=== PATIENT | female | born 1975 | race Hispanic/Latino ===

== ENCOUNTER → 2018-06-24 | Day surgery (SDC) | payer BC ==
[~2018-06-24] MED LIST: HYOSCYAMINE SULFATE 0.5 MG/ML INJ ONE; KETAMINE HCL INJ 50 MG/ML 10 ML VIAL ONE; LIDOCAINE HCL 2% LOCAL INJ 5 ML SDV VIAL INJ ONE; MIDAZOLAM HCL 2 MG/2 ML VIAL ONE; OMEPRAZOLE40 MG PO; PROPOFOL IV EMULSION 10 MG/ML 50 ML VIAL ONE
--- OUTSIDE RECORDS SUMMARY | 2018-06-24 06:47 | XMS REPORT | Continuity of Care Document ---
Author Author [facility] Interface Address Unknown Phone Unavailable Problems Problem Status Onset Date Classification Date Reported Comments Source Urinary tract infection without hematuria, site unspecified Active Diagnosis 05/29/2018 [facility] Upper respiratory tract infection, unspecified type Active Diagnosis 10/08/2016 [facility] Sinus pressure Active Diagnosis 11/20/2016 [facility] Sore throat Active Diagnosis 11/15/2017 [facility] Acute non-recurrent maxillary sinusitis Active Diagnosis 11/15/2017 [facility] Frequency of urination Active Diagnosis 11/15/2017 [facility] Strep pharyngitis Active Diagnosis 11/15/2017 [facility] Flu-like symptoms Active Diagnosis 01/13/2017 [facility] Obesity, Class II, BMI 35-39.9 Active Problem 11/15/2015 [facility] Migraine headache with aura Active Problem 06/03/2016 [facility] Body Mass Index 37.0-37.9, adult Active Problem 11/15/2015 [facility] Screening for breast cancer Active Diagnosis 05/29/2018 [facility] Low back pain Active Diagnosis 10/17/2015 [facility] UTI Active Diagnosis 10/26/2015 [facility] BMI 38.0-38.9,adult Active Diagnosis 11/09/2015 [facility] Urinary tract infection Active Diagnosis 11/09/2015 [facility] Lower abdominal pain Active Diagnosis 11/09/2015 [facility] Weight gain Active Diagnosis 11/09/2015 [facility] Dysuria Active Diagnosis 05/28/2016 [facility] Acute left-sided low back pain without sciatica Active Diagnosis 05/01/2016 [facility] Frequent urination Active Diagnosis 05/01/2016 [facility] Acute cystitis with hematuria Active Diagnosis 05/01/2016 [facility] Gastroesophageal reflux disease, esophagitis presence not specified Active Problem 05/29/2018 [facility] UTI symptoms Active Diagnosis 05/25/2018 [facility] Encntr for general adult medical exam w/o abnormal findings Active Diagnosis 05/29/2018 [facility] Screening for colon cancer Active Diagnosis 05/29/2018 [facility] Screening for osteoporosis Active Diagnosis 05/29/2018 [facility] Medications Medication Details Route Status Patient Instructions Ordering Provider Order Date Source Ciprofloxacin HCl 1 tablet Orally Active 500 mg Orally every 12 hrs [facility] 05/18/2018 [facility] Amoxicillin 1 tablet Orally Active 500 mg Orally every 12 hrs [facility] 05/18/2018 [facility] Omeprazole 1 capsule Orally Active 10 mg Orally Once a day [facility] 05/18/2018 [facility] Cipro 1 tablet Orally Active 500 mg Orally every 12 hrs [facility] 05/11/2018 [facility] Cipro 1 tablet Orally Active 500 mg Orally every 12 hrs [facility] 11/17/2017 [facility] Augmentin 1 tablet Orally Active 875-125 MG Orally every 12 hrs [place] 11/03/2017 [facility] Medrol as directed & to be started sat am as discussed w/ pt Orally Active 4 mg Orally as directed [place] 11/03/2017 [facility] Tamiflu 1 capsule Orally Active 75 mg Orally Twice a day [facility] 01/11/2017 [facility] Bromfed DM 10 ml as needed Orally Active 30-2-10 MG/5ML Orally every 4-6 hrs PRN [place] 01/11/2017 [facility] Macrobid 1 capsule with food Orally Active 100 MG Orally twice a day (bid) [facility] 06/02/2016 [facility] Cipro 1 tablet Orally Active 250 MG Orally every 12 hrs [facility] 05/25/2016 [facility] Cipro 1 tablet Orally Active 500 MG Orally Twice a day [place] 04/28/2016 [facility] Contrave 1 tab QAM for 1 week, then increase 1 tab BID for 1 week, then increase 2 tab QAM and 1 tab QPM for 1 week, then increase 2 Tab QAM and 2 tab QPM by mouth Active 8mg/90mg by mouth [place] 11/07/2015 [facility] Bactrim DS 1 tablet Orally Active 800-160 MG Orally Twice a day [place] 11/07/2015 [facility] Contrave 1 tab QAM for 1 week, then increase 1 tab BID for 1 week, then increase 2 tab QAM and 1 tab QPM for 1 week, then increase 2 Tab QAM and 2 tab QPM by mouth Active 8mg/90mg by mouth [place] 11/07/2015 [facility] Macrobid 1 capsule with food Orally Active 100 mg Orally every 12 hrs [facility] 10/16/2015 [facility] Naproxen 1 tablet Orally Active 375 MG Orally Twice a day [place] 10/14/2015 [facility] Cyclobenzaprine HCl 1 tablet Orally Active 10 mg Orally at hour of sleep [place] 10/14/2015 [facility] Advil Allergy Sinus not defined NA Active [facility] Vitamin D (Ergocalciferol) 1 capsule Orally Active [address] UNIT Orally once per week [facility] Allergies, Adverse Reactions, Alerts Substance Category Reaction Severity Reaction type Status Date Reported Comments Source N.K.D.A. Adverse Reaction Info Not Available Adverse Reaction Active 05/18/2018 [facility] Immunizations Immunization Date Given Site Status Last Updated Comments Source Results Order Name Results Value Reference Range Date Interpretation Comments Source Vital Signs Vital Sign Value Date Comments Source Weight 209 05/18/2018 [facility] Height 62 05/18/2018 [facility] Heart Rate 93 05/18/2018 [facility] Diastolic (mm Hg) 86 05/18/2018 [facility] Systolic (mm Hg) 130 05/18/2018 [facility] Weight 210 05/11/2018 [facility] Height 62 05/11/2018 [facility] Heart Rate 97 05/11/2018 [facility] Diastolic (mm Hg) 72 05/11/2018 [facility] Systolic (mm Hg) 130 05/11/2018 [facility] Weight 217 11/03/2017 [facility] Height 62 11/03/2017 [facility] Heart Rate 112 11/03/2017 [facility] Diastolic (mm Hg) 84 11/03/2017 [facility] Systolic (mm Hg) 130 11/03/2017 [facility] Weight 219 01/11/2017 [facility] Height 62 01/11/2017 [facility] Temperature Oral (F) 98.5 F 01/11/2017 [facility] Heart Rate 129 01/11/2017 [facility] Diastolic (mm Hg) 70 01/11/2017 [facility] Systolic (mm Hg) 130 01/11/2017 [facility] Weight 220 11/18/2016 [facility] Height 62 11/18/2016 [facility] Temperature Oral (F) 98.3 F 11/18/2016 [facility] Heart Rate 79 11/18/2016 [facility] Diastolic (mm Hg) 70 11/18/2016 [facility] Systolic (mm Hg) 120 11/18/2016 [facility] Weight 216 10/07/2016 [facility] Height 62 10/07/2016 [facility] Temperature Oral (F) 98.0 F 10/07/2016 [facility] Heart Rate 80 10/07/2016 [facility] Diastolic (mm Hg) 70 10/07/2016 [facility] Systolic (mm Hg) 126 10/07/2016 [facility] Weight 214 05/25/2016 [facility] Height 62 05/25/2016 [facility] Heart Rate 95 05/25/2016 [facility] Diastolic (mm Hg) 70 05/25/2016 [facility] Systolic (mm Hg) 112 05/25/2016 [facility] Weight 214 04/28/2016 [facility] Height 62 04/28/2016 [facility] Heart Rate 95 04/28/2016 [facility] Diastolic (mm Hg) 82 04/28/2016 [facility] Systolic (mm Hg) 119 04/28/2016 [facility] Weight 211 11/07/2015 [facility] Height 62 11/07/2015 [facility] Heart Rate 78 11/07/2015 [facility] Diastolic (mm Hg) 70 11/07/2015 [facility] Systolic (mm Hg) 122 11/07/2015 [facility] Weight 210 10/23/2015 [facility] Height 62 10/23/2015 [facility] Heart Rate 95 10/23/2015 [facility] Diastolic (mm Hg) 75 10/23/2015 [facility] Systolic (mm Hg) 120 10/23/2015 [facility] Weight 209 10/14/2015 [facility] Height 62 10/14/2015 [facility] Heart Rate 104 10/14/2015 [facility] Diastolic (mm Hg) 76 10/14/2015 [facility] Systolic (mm Hg) 119 10/14/2015 [facility] Encounters Location Location Details Encounter Type Encounter Number Reason For Visit Attending Provider ADM Date DC Date Status Source [facility] back pain [id number] 10/14/2015 10/14/2015 [facility] back pain [id number] 10/14/2015 10/14/2015 [facility] back pain [id number] 10/14/2015 10/14/2015 [facility] back pain [id number] 10/14/2015 10/14/2015 [facility] back pain [id number] 10/14/2015 10/14/2015 [facility] Unknown [id number] 10/16/2015 10/16/2015 [facility] Unknown [id number] 10/16/2015 10/16/2015 [facility] Unknown [id number] 10/16/2015 10/16/2015 [facility] Unknown [id number] 10/16/2015 10/16/2015 [facility] Unknown [id number] 10/16/2015 10/16/2015 [facility] 1 week follow up [id number] 10/23/2015 10/23/2015 [facility] 1 week follow up [id number] 10/23/2015 10/23/2015 [facility] 1 week follow up [id number] 10/23/2015 10/23/2015 [facility] Sick visit [id number] 11/07/2015 11/07/2015 [facility] Sick visit [id number] 11/07/2015 11/07/2015 [facility] Refill [id number] 11/14/2015 11/14/2015 [facility] Procedures Procedure Code Date Perfomer Comments Source
--- OUTSIDE RECORDS SUMMARY | 2018-06-24 06:47 | XMS REPORT ---
Author Author Anneliese Boss Organization [employer] Address Unknown Phone Unavailable Care Team Providers Care Tree Chipper Name Role Phone Anneliese Boss Unavailable Allergies No Known Allergies Problems Problem Type Condition Code Onset Dates Condition Status Problem Gastroesophageal reflux disease, esophagitis presence not specified K21.9 Active Medications Medication Code System Code Instructions Start Date End Date Status Dosage Ciprofloxacin HCl [facility] 65696631247 500 mg Orally every 12 hrs May 18, 2018 May 28, 2018 Active 1 tablet Results No Known Results Summary Purpose [employer] Submission
--- OUTSIDE RECORDS SUMMARY | 2018-06-24 06:47 | XMS REPORT ---
Author Author Desi Lawrence Organization [employer] Address Unknown Phone Unavailable Care Team Providers Care Merchandising Execution Manager Name Role Phone Desi Lawrence CP Unavailable Allergies, Adverse Reactions, Alerts Substance Reaction Event Type N.K.D.A. Info Not Available Non Drug Allergy Problems Problem Type Condition Code Onset Dates Condition Status Assessment Flu-like symptoms R68.89 Active Medications Medication Code System Code Instructions Start Date End Date Status Dosage Tamiflu [facility] 93133160555 75 mg Orally Twice a day Jan 11, 2017 Active 1 capsule Advil Allergy Sinus [facility] [address]-74 Active not defined Bromfed DM [facility] 99245277694 30-2-10 MG/5ML Orally every 4-6 hrs PRN Jan 11, 2017 Jan 18, 2017 Active 10 ml as needed Vital Signs Date/Time: Jan 11, 2017 BMI 40.05 Index Weight 219 lbs Height 62 in Temperature 98.5 F Cardiac Monitoring Heart Rate 129 /min Blood Pressure Diastolic 70 mm Hg Blood Pressure Systolic 130 mm Hg Results Name Result Date Reference Range Unit Abnormality Flag RAPID FLU ----Result POSITIVE A [id number] Summary Purpose [employer] Submission
--- OUTSIDE RECORDS SUMMARY | 2018-06-24 06:47 | XMS REPORT ---
Author Author Abraham Avila [employer] Address Unknown Phone Unavailable Care Team Providers Care Disc Pad Grinder Name Role Phone Abraham Avila Unavailable Allergies, Adverse Reactions, Alerts Substance Reaction Event Type N.K.D.A. Info Not Available Non Drug Allergy Problems Problem Type Condition Code Onset Dates Condition Status Assessment Sore throat J02.9 Active Assessment Acute non-recurrent maxillary sinusitis J01.00 Active Assessment Frequency of urination R35.0 Active Assessment Urinary tract infection without hematuria, site unspecified N39.0 Active Assessment Strep pharyngitis J02.0 Active Medications Medication Code System Code Instructions Start Date End Date Status Dosage Augmentin [facility] 80013925830 875-125 MG Orally every 12 hrs Nov 03, 2017 Nov 13, 2017 Active 1 tablet Medrol [facility] 92814135890 4 mg Orally as directed Nov 03, 2017 Nov 09, 2017 Active as directed & to be started sat am as discussed w/ pt Advil Allergy Sinus [facility] [address]-66 Active not defined Tamiflu [facility] 21560164372 75 mg Orally Twice a day Jan 11, 2017 Active 1 capsule Vital Signs Date/Time: Nov 03, 2017 BMI 39.69 Index Weight 217 lbs Height 62 in Cardiac Monitoring Heart Rate 112 /min Blood Pressure Diastolic 84 mm Hg Blood Pressure Systolic 130 mm Hg Results Name Result Date Reference Range Unit Abnormality Flag [place]AD[place] 1MGx4 CULTURE, URINE, ROUTINE ----CULTURE, URINE, ROUTINE SEE NOTE [id number] A URINE AUTO W/O SCOPE ----Spec [place] 1.020 20171103 ----Turbidity CLOUDY 20171103 ----Glucose NEG 20171103 ----Ketones SMALL 20171103 ----Blood LARGE 20171103 ----Bili NEG 20171103 ----Color DARK YELLOW 20171103 ----pH 5.0 20171103 ----Leuk Est SMALL 20171103 ----Nitrite NEG 20171103 ----Urobilinogen 0.2 20171103 ----Protein 100 20171103 RAPID STREP ----Positive x [id number] Summary Purpose [employer] Submission
--- OUTSIDE RECORDS SUMMARY | 2018-06-24 06:47 | XMS REPORT ---
Author Author Anneliese Boss Organization [employer] Address Unknown Phone Unavailable Care Team Providers Care Accounting Machine Operator Name Role Phone Anneliese Boss CP Unavailable Allergies, Adverse Reactions, Alerts Substance Reaction Event Type N.K.D.A. Info Not Available Non Drug Allergy Problems Problem Type Condition Code Onset Dates Condition Status Assessment UTI symptoms R39.9 Active Problem Gastroesophageal reflux disease, esophagitis presence not specified K21.9 Active Medications Medication Code System Code Instructions Start Date End Date Status Dosage Cipro ND 57189439953 500 mg Orally every 12 hrs May 11, 2018 May 21, 2018 Active 1 tablet Vital Signs Date/Time: May 11, 2018 BMI 38.41 Index Weight 210 lbs Height 62 in Cardiac Monitoring Heart Rate 97 /min Blood Pressure Diastolic 72 mm Hg Blood Pressure Systolic 130 mm Hg Results Name Result Date Reference Range Unit Abnormality Flag URINE AUTO W/O SCOPE ----Spec [place] 1.010 [id number] ----Turbidity CLEAR 20180512 ----Glucose NEG 20180512 ----Ketones NEG 20180512 ----Blood LARGE+++ 20180512 ----Bili NEG 20180512 ----Color YELLOW 20180512 ----pH 7.0 20180512 ----Leuk Est SMALL+ 20180512 ----Nitrite NEG 20180512 ----Urobilinogen 0.2 20180512 ----Protein NEG 20180512 CULTURE, URINE, ROUTINE ----CULTURE, URINE, ROUTINE SEE NOTE [id number] A Summary Purpose [employer] Submission
--- OUTSIDE RECORDS SUMMARY | 2018-06-24 06:47 | XMS REPORT ---
Author Author Desi Lawrence Organization [employer] Address Unknown Phone Unavailable Care Team Providers Care Catalyst Operator Gasoline Name Role Phone Desi Lawrence CP Unavailable Allergies, Adverse Reactions, Alerts Substance Reaction Event Type N.K.D.A. Info Not Available Non Drug Allergy Problems Problem Type Condition Code Onset Dates Condition Status Assessment Upper respiratory tract infection, unspecified type J06.9 Active Medications Medication Code System Code Instructions Start Date End Date Status Dosage Advil Allergy Sinus [facility] [address]-93 Active not defined Vital Signs Date/Time: Oct 07, 2016 BMI 39.50 Index Weight 216 lbs Height 62 in Temperature 98.0 F Cardiac Monitoring Heart Rate 80 /min Blood Pressure Diastolic 70 mm Hg Blood Pressure Systolic 126 mm Hg Results No Known Results Summary Purpose [employer] Submission
--- OUTSIDE RECORDS SUMMARY | 2018-06-24 06:47 | XMS REPORT ---
Author Author Anneliese Boss [facility] [employer] Address Unknown Phone Unavailable Care Team Providers Care Cad Designer Drafter Name Role Phone Anneliese Boss CP Unavailable Allergies, Adverse Reactions, Alerts Substance Reaction Event Type N.K.D.A. Info Not Available Non Drug Allergy Problems Problem Type Condition Code Onset Dates Condition Status Assessment Urinary tract infection without hematuria, site unspecified N39.0 Active Assessment Encntr for general adult medical exam w/o abnormal findings Z00.00 Active Problem Gastroesophageal reflux disease, esophagitis presence not specified K21.9 Active Assessment Screening for colon cancer Z12.11 Active Assessment Gastroesophageal reflux disease, esophagitis presence not specified K21.9 Active Assessment Screening for breast cancer Z12.39 Active Assessment Screening for osteoporosis Z13.820 Active Medications Medication Code System Code Instructions Start Date End Date Status Dosage Amoxicillin [facility] 99117512253 500 mg Orally every 12 hrs May 18, 2018 May 28, 2018 Active 1 tablet Omeprazole [facility] 66124964914 10 mg Orally Once a day May 18, 2018 Active 1 capsule Cipro [facility] 75998178511 500 mg Orally every 12 hrs May 11, 2018 May 21, 2018 Active 1 tablet Vital Signs Date/Time: May 18, 2018 BMI 38.22 Index Weight 209 lbs Height 62 in Cardiac Monitoring Heart Rate 93 /min Blood Pressure Diastolic 86 mm Hg Blood Pressure Systolic 130 mm Hg Results Name Result Date Reference Range Unit Abnormality Flag TSH+Free T4 ----TSH 1.780 [id number] 0.450-4.500 uIU/mL ----T4,Free(Direct) 1.27 15816413 0.82-1.77 ng/dL Lipid Panel ----LDL Cholesterol Calc 80 12542148 0-99 mg/dL ----VLDL Cholesterol Brad 23 84627437 5-40 mg/dL ----Cholesterol, Total 172 03882063 100-199 mg/dL ----HDL Cholesterol 69 23602794 >39 mg/dL ----Triglycerides 117 05165485 0-149 mg/dL Urinalysis, Routine ----RBC 11-30 64458023 0 - 2 /hpf A ----WBC 0-5 62901254 0 - 5 /hpf ----Mucus Threads Present [id number] Not Estab. ----Epithelial Cells (non renal) 0-10 44200311 0 - 10 /hpf ----Occult Blood 2+ 29926632 Negative A ----Ketones Negative 85021257 Negative ----Bacteria Few 07257508 None seen/Few ----Glucose Negative 98987858 Negative ----Protein 1+ 45259425 Negative/Trace A ----WBC Esterase Negative 67225408 Negative ----Urobilinogen,Semi-Qn 0.2 90826993 0.2-1.0 mg/dL ----Bilirubin Negative 00410070 Negative ----Microscopic Examination See below: [id number] ----Nitrite, Urine Negative 75582177 Negative ----Specific [place] 1.022 20180518 1.005-1.030 ----pH 6.5 99273610 5.0-7.5 ----Urine-Color Yellow 20180518 Yellow ----Appearance Clear [id number] Clear CBC With Differential/Platelet ----MCHC 33.6 05583402 31.5-35.7 g/dL ----MCH 28.6 63964308 26.6-33.0 pg ----Platelets 258 98989398 150-379 x10E3/uL ----RDW 14.4 41707105 12.3-15.4 % ----Immature Granulocytes 0 11002886 Not Estab. % ----Immature Grans (Abs) 0.0 79123553 0.0-0.1 x10E3/uL ----Lymphs 29 26726943 Not Estab. % ----Monocytes 6 74601506 Not Estab. % ----Neutrophils 59 62873145 Not Estab. % ----Neutrophils (Absolute) 3.3 65581188 1.4-7.0 x10E3/uL ----Hematocrit 42.3 14459288 34.0-46.6 % ----Lymphs (Absolute) 1.6 66236865 0.7-3.1 x10E3/uL ----MCV 85 80530874 79-97 fL ----Eos 6 06584265 Not Estab. % ----RBC 4.97 60333178 3.77-5.28 x10E6/uL ----Basos 0 56212928 Not Estab. % ----Hemoglobin 14.2 41979305 11.1-15.9 g/dL ----Baso (Absolute) 0.0 61304498 0.0-0.2 x10E3/uL ----WBC 5.5 49276710 3.4-10.8 x10E3/uL ----Monocytes(Absolute) 0.3 46255229 0.1-0.9 x10E3/uL ----Eos (Absolute) 0.3 95717537 0.0-0.4 x10E3/uL Comp. Metabolic Panel (14) ----Potassium 4.5 38112632 3.5-5.2 mmol/L ----Sodium 139 40967104 134-144 mmol/L ----BUN/Creatinine Ratio 14 20180518 9-23 ----eGFR If Africn Am 103 09727076 >59 mL/min/1.73 ----eGFR If NonAfricn Am 89 45967891 >59 mL/min/1.73 ----Creatinine 0.81 19735711 0.57-1.00 mg/dL ----BUN 11 22011575 6-24 mg/dL ----Glucose 88 33556031 65-99 mg/dL ----AST (SGOT) 13 20180518 0-40 IU/L ----Globulin, Total 2.5 03241860 1.5-4.5 g/dL ----ALT (SGPT) 16 20180518 0-32 IU/L ----A/G Ratio 1.8 20180518 1.2-2.2 ----Bilirubin, Total 0.4 55729318 0.0-1.2 mg/dL ----Alkaline Phosphatase 78 06155923 39-117 IU/L ----Carbon Dioxide, Total 20 20180518 20-29 mmol/L ----Calcium 9.8 16027285 8.7-10.2 mg/dL ----Protein, Total 7.0 20180518 6.0-8.5 g/dL ----Albumin 4.5 20180518 3.5-5.5 g/dL ----Chloride 101 20180518 96-106 mmol/L Summary Purpose [employer]Works Submission
--- OUTSIDE RECORDS SUMMARY | 2018-06-24 06:47 | XMS REPORT ---
Author Author Abraham Avila Organization [employer] Address Unknown Phone Unavailable Care Team Providers Care Air Tank Assembler Name Role Phone Abraham Avila Unavailable Allergies No Known Allergies Problems Problem Type Condition Code Onset Dates Condition Status Assessment Urinary tract infection without hematuria, site unspecified N39.0 Active Medications Medication Code System Code Instructions Start Date End Date Status Dosage Cipro [facility] 91948408568 500 mg Orally every 12 hrs Nov 17, 2017 Nov 27, 2017 Active 1 tablet Results No Known Results Summary Purpose eClinicalWorks Submission
--- OUTSIDE RECORDS SUMMARY | 2018-06-24 06:47 | XMS REPORT ---
Author Author Desi Lawrence Organization [employer] Address Unknown Phone Unavailable Care Team Providers Care Environmental Educator Name Role Phone Desi Lawrence CP Unavailable Allergies, Adverse Reactions, Alerts Substance Reaction Event Type N.K.D.A. Info Not Available Non Drug Allergy Problems Problem Type Condition Code Onset Dates Condition Status Assessment Sinus pressure J34.89 Active Medications Medication Code System Code Instructions Start Date End Date Status Dosage Advil Allergy Sinus [facility] [address]-09 Active not defined Vital Signs Date/Time: Nov 18, 2016 BMI 40.23 Index Weight 220 lbs Height 62 in Temperature 98.3 F Cardiac Monitoring Heart Rate 79 /min Blood Pressure Diastolic 70 mm Hg Blood Pressure Systolic 120 mm Hg Results No Known Results Summary Purpose eClinicalWorks Submission
--- OUTSIDE RECORDS SUMMARY | 2018-06-24 06:48 | XMS REPORT ---
Author Author Keren Carpenter Organization [employer] Address Unknown Phone Unavailable Care Team Providers Care Sidehand Name Role Phone Keren Carpenter Unavailable Allergies, Adverse Reactions, Alerts Substance Reaction Event Type N.K.D.A. Info Not Available Non Drug Allergy Encounters Encounter Location Date back pain [facility] Oct 14, 2015 Unknown [facility] Oct 16, 2015 Problems Problem Type Condition ICD-9 Code Onset Dates Condition Status Problem Obesity, Class II, BMI 35-39.9 278.00 Active Problem Migraine headache with aura 346.00 Active Problem Body Mass Index 37.0-37.9, adult V85.37 Active Assessment Screening for breast cancer Z12.39 Active Assessment Low back pain M54.5 Active Medications Medication Code System Code Instructions Start Date End Date Status Dosage Naproxen [facility] [address]-33 375 MG Orally Twice a day Oct 14, 2015 Nov 13, 2015 Active 1 tablet [facility] [address]-35 10 mg Orally at hour of sleep Oct 14, 2015 Nov 13, 2015 Active 1 tablet Social History Social History Element Qualifiers Date Reported Depression Screening: . negative Oct 14, 2015 Last Colonoscopy: . never Oct 14, 2015 Last Bone Density: . never Oct 14, 2015 children . 5 Oct 14, 2015 Tobacco Use: . Are you a: never smoker Oct 14, 2015 Flu Vaccine: . 2013Oct 14, 2015 Do you have pets? . Status: No Oct 14, 2015 Marital Status: . Gordo Ashvin Oct 14, 2015 Caffeine intake? . Status: Yes, What type: Coffee Oct 14, 2015 Do you exercise? . Answer: No Oct 14, 2015 Do you drink alcohol? . 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
--- OUTSIDE RECORDS SUMMARY | 2018-06-24 06:48 | XMS REPORT ---
Author Author Keren Carpenter [facility] eClinicalWorks Address Unknown Phone Unavailable Care Team Providers Care Clinical Cytogeneticist Scientist Name Role Phone Keren Carpenter CP Unavailable Allergies, Adverse Reactions, Alerts Substance Reaction Event Type N.K.D.A. Info Not Available Non Drug Allergy Encounters Encounter Location Date back pain [facility] Oct 14, 2015 Unknown [facility] Oct 16, 2015 1 week follow up [facility] Oct 23, 2015 Problems Problem Type Condition ICD-9 Code Onset Dates Condition Status Problem Obesity, Class II, BMI 35-39.9 278.00 Active Problem Migraine headache with aura 346.00 Active Problem Body Mass Index 37.0-37.9, adult V85.37 Active Assessment UTI (urinary tract infection) N39.0 Active Medications Medication Code System Code Instructions Start Date End Date Status Dosage Macrobid [facility] [address]-35 100 mg Orally every 12 hrs Oct 16, 2015 Oct 23, 2015 Active 1 capsule with food Cyclobenzaprine HCl [facility] [address]-81 10 mg Orally at hour of sleep Oct 14, 2015 Nov 13, 2015 Active 1 tablet Naproxen [facility] [address]-92 375 MG Orally Twice a day Oct 14, 2015 Nov 13, 2015 Active 1 tablet Social History Social History Element Qualifiers Date Reported Depression Screening: . negative Oct 23, 2015 Last Colonoscopy: . never Oct 23, 2015 Last Bone Density: . never Oct 23, 2015 children . 5 Oct 23, 2015 Tobacco Use: . Are you a: never smoker Oct 23, 2015 Flu Vaccine: . 2013Oct 23, 2015 Do you have pets? . Status: No Oct 23, 2015 Marital Status: . Gordo Lock Oct 23, 2015 Caffeine intake? . Status: Yes, What type: Coffee Oct 23, 2015 Do you exercise? . Answer: No Oct 23, 2015 Do you drink alcohol? . 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, 2015 Family history Qualifier Description Comment Date Reported Maternal Grandmother stroke Oct 23, 2015 Paternal Grandmother Comment not available Oct 23, 2015 Siblings Comment not available Oct 23, 2015 Maternal Grandfather Comment not available Oct 23, 2015 Children Comment not available Oct 23, 2015 Father alive heart disease, heart attack Oct 23, 2015 Paternal Grandfather Comment not available Oct 23, 2015 Mother alive hypertension, seizure disorder, asthma Oct 23, 2015 Other: Comment not available Oct 23, 2015 Vital Signs Date/Time: Oct 23, 2015 Weight 210 lbs Height 62 in Cardiac Monitoring Heart Rate 95 /min Blood Pressure Diastolic 75 mm Hg Blood Pressure Systolic 120 mm Hg Results URINE AUTO W/O SCOPE Summary Purpose eClinicalWorks Submission
--- OUTSIDE RECORDS SUMMARY | 2018-06-24 06:48 | XMS REPORT ---
Author Author Allie Watson Organization e[employer] Address Unknown Phone Unavailable Care Team Providers Care Cross [place] Truck Driver Name Role Phone Allie Watson CP Unavailable Allergies No Known Allergies Problems Problem Type Condition Code Onset Dates Condition Status Problem Migraine headache with aura 346.00 Active Medications Medication Code System Code Instructions Start Date End Date Status Dosage Macrobid [facility] [address]-98 100 MG Orally twice a day (bid) June 02, 2016 June 09, 2016 Active 1 capsule with food Results No Known Results Summary Purpose eClinicalWorks Submission
--- OUTSIDE RECORDS SUMMARY | 2018-06-24 06:48 | XMS REPORT ---
Author Author Allie Wtason Organization e[employer] Address Unknown Phone Unavailable Care Team Providers Care Check Airman Name Role Phone Allie Watson CP Unavailable Encounters Encounter Location Date back pain [facility] Oct 14, 2015 Unknown [facility] Oct 16, 2015 Problems Problem Type Condition ICD-9 Code Onset Dates Condition Status Problem Obesity, Class II, BMI 35-39.9 278.00 Active Problem Migraine headache with aura 346.00 Active Problem Body Mass Index 37.0-37.9, adult V85.37 Active Medications Medication Code System Code Instructions Start Date End Date Status Dosage Macrobid [facility] [address]-01 100 mg Orally every 12 hrs Oct 16, 2015 Oct 23, 2015 Active 1 capsule with food Social History Social History Element Qualifiers Date [...] Oct 14, 2015 Marital Status: . Gordo Lock Oct 14, 2015 Caffeine intake? . Status: Yes, What type: Coffee Oct 14, 2015 Do you exercise? . Answer: No Oct 14, 2015 Do you drink alcohol? . 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
--- OUTSIDE RECORDS SUMMARY | 2018-06-24 06:48 | XMS REPORT ---
Author Author Keren Carpenter Organization e[employer] Address Unknown Phone Unavailable Care Team Providers Care Awning Installer Name Role Phone Keren Carpenter Unavailable Encounters Encounter Location Date Sick visit [facility] Nov 07, [address] [facility] Nov 14, [address] [facility] Oct 14, [address] [facility] Oct 16, 2015 1 week follow up [facility] Oct 23, 2015 Problems Problem Type Condition ICD-9 Code Onset Dates Condition Status Problem Obesity, Class II, BMI 35-39.9 278.00 Active Problem Migraine headache with aura 346.00 Active Problem Body Mass Index 37.0-37.9, adult V85.37 Active Medications Medication Code System Code Instructions Start Date End Date Status Dosage Vitamin D (Ergocalciferol) [facility] [id number] 97202 UNIT Orally once per week Active 1 capsule Social History Social History Element Qualifiers Date Reported Depression Screening: . negative Nov 07, 2015 Last Colonoscopy: . never Nov 07, 2015 Last Bone Density: . never Nov 07, 2015 children . 5 Nov 07, 2015 Tobacco Use: . Are you a: never smoker Nov 07, 2015 Flu Vaccine: . 2013Nov 07, 2015 Do you have pets? . Status: No Nov 07, 2015 Marital Status: . Gordo Lock Nov 07, 2015 Caffeine intake? . Status: Yes, What type: Coffee Nov 07, 2015 Do you exercise? . Answer: No Nov 07, 2015 Do you drink alcohol? . 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
--- OUTSIDE RECORDS SUMMARY | 2018-06-24 06:48 | XMS REPORT ---
Author Author Keren Carpenter Organization [employer] Address Unknown Phone Unavailable Care Team Providers Care Delimber Operator Name Role Phone Keren Carpenter Unavailable Allergies, Adverse Reactions, Alerts Substance Reaction Event Type N.K.D.A. Info Not Available Non Drug Allergy Problems Problem Type Condition Code Onset Dates Condition Status Assessment Acute left-sided low back pain without sciatica M54.5 Active Assessment Frequent urination R35.0 Active Problem Migraine headache with aura 346.00 Active Assessment Acute cystitis with hematuria N30.01 Active Medications Medication Code System Code Instructions Start Date End Date Status Dosage Vitamin D (Ergocalciferol) [facility] 18274308842 17627 UNIT Orally once per week Active 1 capsule Contrave NDC 0 8mg/90mg by mouth Nov 07, 2015 Active 1 tab QAM for 1 week, then increase 1 tab BID for 1 week, then increase 2 tab QAM and 1 tab QPM for 1 week, then increase 2 Tab QAM and 2 tab QPM Cipro [facility] [address]-00 500 MG Orally Twice a day April 28, 2016 May 03, 2016 Active 1 tablet Vital Signs Date/Time: April 28, 2016 BMI 39.14 Index Weight 214 lbs Height 62 in Cardiac Monitoring Heart Rate 95 /min Blood Pressure Diastolic 82 mm Hg Blood Pressure Systolic 119 mm Hg Results Name Result Date Reference Range Unit Abnormality Flag Urine Culture, Routine ----Urine Culture, Routine Final report [id number] ----Result 1 Comment [id number] Summary Purpose eClinicalWorks Submission
--- OUTSIDE RECORDS SUMMARY | 2018-06-24 06:48 | XMS REPORT ---
Author Author Keren Carpenter Organization eClinicalWorks Address Unknown Phone Unavailable Care Team Providers Care Machine Shop Apprentice Name Role Phone Keren Carpenter Unavailable Allergies, Adverse Reactions, Alerts Substance Reaction Event Type N.K.D.A. Info Not Available Non Drug Allergy Problems Problem Type Condition Code Onset Dates Condition Status Assessment Dysuria R30.0 Active Problem Migraine headache with aura 346.00 Active Medications Medication Code System Code Instructions Start Date End Date Status Dosage Vitamin D (Ergocalciferol) [facility] [id number] 10034 UNIT Orally once per week Active 1 capsule Cipro [facility] [address]-31 250 MG Orally every 12 hrs May 25, 2016 May 28, 2016 Active 1 tablet Contrave NDC 0 8mg/90mg by mouth Nov 07, 2015 Active 1 tab QAM for 1 week, then increase 1 tab BID for 1 week, then increase 2 tab QAM and 1 tab QPM for 1 week, then increase 2 Tab QAM and 2 tab QPM Vital Signs Date/Time: May 25, 2016 BMI 39.14 Index Weight 214 lbs Height 62 in Cardiac Monitoring Heart Rate 95 /min Blood Pressure Diastolic 70 mm Hg Blood Pressure Systolic 112 mm Hg Results No Known Results Summary Purpose eClinicalWorks Submission
--- OUTSIDE RECORDS SUMMARY | 2018-06-24 06:48 | XMS REPORT ---
Author Author Abraham Avila [facility] eClinicalWorks Address Unknown Phone Unavailable Care Team Providers Care Manufacturing Analyst Name Role Phone Abraham Avila Unavailable Allergies No Known Allergies Problems No Known Problems Medications No Known Medications Results No Known Results Summary Purpose eClinicalWorks Submission
--- OUTSIDE RECORDS SUMMARY | 2018-06-24 06:48 | XMS REPORT ---
Author Author Keren Carpenter [facility] eClinicalWorks Address Unknown Phone Unavailable Care Team Providers Care Extruding Press Adjuster Name Role Phone Keren Carpenter CP Unavailable Allergies, Adverse Reactions, Alerts Substance Reaction Event Type N.K.D.A. Info Not Available Non Drug Allergy Encounters Encounter Location Date Sick visit [facility] Nov 07, 2015 back pain [facility] Oct 14, 2015 Unknown [facility] Oct 16, 2015 1 week follow up [facility] Oct 23, 2015 Problems Problem Type Condition ICD-9 Code Onset Dates Condition Status Problem Obesity, Class II, BMI 35-39.9 278.00 Active Problem Migraine headache with aura 346.00 Active Problem Body Mass Index 37.0-37.9, adult V85.37 Active Assessment BMI 38.0-38.9,adult Z68.38 Active Assessment Urinary tract infection N39.0 Active Assessment Lower abdominal pain R10.30 Active Assessment Weight gain R63.5 Active Medications Medication Code System Code Instructions Start Date End Date Status Dosage Naproxen [facility] [address]-99 375 MG Orally Twice a day Oct 14, 2015 Nov 13, 2015 Active 1 tablet [facility] [address]-63 10 mg Orally at hour of sleep Oct 14, 2015 Nov 13, 2015 Active 1 tablet Contrave Unknown 0 8mg/90mg by mouth Nov 07, 2015 Active 1 tab QAM for 1 week, then increase 1 tab BID for 1 week, then increase 2 tab QAM and 1 tab QPM for 1 week, then increase 2 Tab QAM and 2 tab QPM Bactrim [facility] [address]-62 800-160 MG Orally Twice a day Nov 07, 2015 Nov 14, 2015 Active 1 tablet Social History Social [...] Nov 07, 2015 Marital Status: . Gordo Ashvin Nov 07, 2015 Caffeine intake? . Status: Yes, What type: Coffee Nov 07, 2015 Do you exercise? . Answer: No Nov 07, 2015 Do you drink alcohol? . 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
[2018-06-24 11:08] VITALS: BP 120/88
--- NOTE | 2018-06-24 18:59 | Operative Report ---
DATE OF PROCEDURE: 06/24/2018 SURGEON: Matthew Sandoval MD PROCEDURES: Esophagogastroduodenoscopy with biopsies and colonoscopy. INDICATIONS FOR EGD: Acid reflux. INDICATIONS FOR COLONOSCOPY: Crampy lower abdominal pain, constipation, guaiac-positive stools. MEDICATIONS: The patient was done under MAC, please see anesthesiologist's note. PROCEDURE IN DETAIL: With the patient in left lateral decubitus position, flexible fiberoptic Olympus gastroscope was introduced into the esophagus under direct visualization without any difficulty. There was some patchy erythema noted in distal esophagus. The mucosa overlying the GE junction appeared somewhat nodular and that was biopsied. The scope was then advanced with ease into the stomach traversing a small hiatal hernia. Mucosa overlying the antrum and the body revealed some patchy erythema and [id number] edema and biopsies were obtained and sent to stain for H pylori. The pylorus was of normal contour and shape, was intubated with ease and the scope was advanced all the way to the second portion of the duodenum. Biopsies were obtained from the proximal second portion and the duodenal bulb to rule out sprue. Two minute nodules were noted in the duodenal bulb and those were removed per the cold biopsy forceps. The scope was then withdrawn back into the stomach and retroflexed and the previously described hiatal hernia was also noted in the retroflexed position. Mucosa overlying the fundus appeared to be within normal limits. The scope was then straightened out, it was subsequently withdrawn. The patient tolerated procedure well. IMPRESSION: 1. Distal esophagitis, mild. 2. Somewhat nodular GE junction, biopsied. 3. LES somewhat incompetent. 4. Small hiatal hernia. 5. Gastritis, biopsied, biopsies sent to stain for H pylori. 6. Duodenal bulb nodules, removed per cold biopsy forceps. PLAN: Follow up histology. Initiate Protonix 40 mg one p.o. q.a.m. a.c. PROCEDURE IN DETAIL: The patient was then turned around. After adequate lubrication of the anal canal, a flexible fiberoptic Olympus colonoscope was inserted into the rectum with ease and advanced all the way to the cecum. It was then withdrawn slowly and mucosa overlying the cecum, ascending colon, transverse, descending, sigmoid, and rectum grossly appeared to be within normal limits. The scope was then retroflexed into the distal rectum and small internal hemorrhoids were noted, none of which was actively bleeding. The scope was then straightened out, it was subsequently withdrawn. The patient tolerated procedure well. IMPRESSION: Internal hemorrhoids, none actively bleeding. PLAN: Initiate high-fiber low-fat diet. Initiate high-fiber supplement. We will start Linzess 145 mcg one p.o. q.a.m. a.c. Check TSH. The patient might benefit from a followup colonoscopy in 5-10 years. Matthew Sandoval MD [facility] [place][id number] cc: Allie Reina DO
== END | disposition home or self-care (01) ==
LOC: OR 06:44
PROVIDERS: ATTEND Internal Medicine Gastroenterology
DX: K21.0 Gastro-esophageal reflux disease with esophagitis (principal); K44.9 Diaphragmatic hernia without obstruction or gangrene; K29.70 Gastritis, unspecified, without bleeding; K64.8 Other hemorrhoids; Q43.8 Other specified congenital malformations of intestine; R12 Heartburn; K59.00 Constipation, unspecified; K62.5 Hemorrhage of anus and rectum; R19.7 Diarrhea, unspecified; R03.0 Elevated blood-pressure reading, without diagnosis of hypertension; Z68.41 Body mass index [BMI] 40.0-44.9, adult
CPT/HCPCS: 36415; 43239; 45378; 81025; 84443; J1980; J2001; J2250; J2704